=== PATIENT | male | born 1960 | race Caucasian/White ===

== ENCOUNTER → 2018-03-31 | Day surgery (SDC) | payer OTHER ==
[2018-03-28 11:18] LABS: Basophils # (auto) 0 uL; Basophils % (auto) 1.1 % (0.0-2.0); Eosinophils # (auto) 0.2 uL; Eosinophils % (auto) 4.2 % (0.0-7.0); Hematocrit 47.4 % (41.0-53.0); Hemoglobin 16.2 g/dL (13.5-17.5); Lymphocytes # (auto) 1.2 uL; Lymphocytes % (auto) 27.5 % (10.0-50.0); Mean Corpuscular Hemoglobin 31.2 pg (28.0-32.0); Mean Corpuscular Hgb Conc. 34.2 g/dL (32.0-36.0); Mean Corpuscular Volume 91.3 fL (80.0-100.0); Monocytes # (auto) 0.2 uL; Monocytes % (auto) 5.8 % (0.0-12.0); Neutrophils # (auto) 2.6 uL; Neutrophils % (auto) 61.4 % (37.0-80.0); Nucleated Red Blood Cells % 0.1 %; Platelet Count (auto) 133 10^3/uL (140-450); Red Blood Cells 5.19 10^6/uL (4.5-5.90); Red Cell Distribution Width 12.6 % (11.8-14.3); White Blood Cell 4.2 10^3/uL (4.4-10.8)
[2018-03-28 11:22] LABS: Urine Bacteria NONE SEEN /hpf (None Seen); Urine Blood Negative /uL (Negative); Urine Specific Gravity 1.013 (1.001-1.035); Urine WBC <1 /hpf (0 - 3)
[2018-03-28 11:35] LABS: INR 0.94 (0.9-1.15); Partial Thromboplastin Time 28.4 sec (23.78-33.04); Prothrombin Time 10.1 sec (9.27-12.13)
[2018-03-28 11:37] LABS: BUN/Creatinine Ratio 12.2; Calcium 8.7 mg/dL (8.5-10.1)
[2018-03-28 11:40] LABS: Bilirubin, Total 0.7 mg/dL (0.2-1.0); Total Protein 7.5 g/dL (6.4-8.2)
[~2018-03-31] VITALS: Ht 180.3 cm; Wt 81.6 kg
[~2018-03-31] MED LIST: BUPIVACAINE W/ EPINEPH 0.5% MPF 30ML VIAL IJ ONE; LEVO137T3 PO; LIDOCAINE W/ EPINEPHRINE 1 % INJ 30ML ONE; MIDAZOLAM HCL 1MG/1ML-2 ML VIAL ONE; MORPHINE SULF(PF) 0.5MG/ML 10ML VIAL ONE; ONDANSETRON HCL 4 MG/2 ML VIAL IV ONE; VANCOMYCIN HCL 1000 MG VL ONE; ceFAZolin 1GM/50ML 100 ML IV ONE; ePHEDrine SULFATE 50 MG/ML AMP IV PRN; fentaNYL CITRATE 100 MCG/2 ML VL IV ONE; fentaNYL CITRATE 100 MCG/2 ML VL ONE; hydrALAZINE HCL 20 MG/ML VL IV PRN
[2018-03-31 08:52] VITALS: BP 128/59
== END | disposition home or self-care (01) ==
LOC: PAIN 06:13
PROVIDERS: ATTEND Anesthesiology Pain Medicine
DX: M51.16 Intervertebral disc disorders with radiculopathy, lumbar region (principal); M54.40 Lumbago with sciatica, unspecified side; Z45.49 Encounter for adjustment and management of other implanted nervous system device; E03.9 Hypothyroidism, unspecified; G47.30 Sleep apnea, unspecified; K21.9 Gastro-esophageal reflux disease without esophagitis; Z79.2 Long term (current) use of antibiotics
CPT/HCPCS: 36415; 62362; 62370; 80053; 81001; 85025; 85610; 85730; C1772; J0690; J2001; J2250; J2270; J3010; J3370; J2405

== ENCOUNTER 2024-10-19 06:12 | Day surgery (SDC) | payer OTHER ==
[~2024-10-19] VITALS: Ht 180.3 cm; Wt 81.6 kg
[~2024-10-19 06:12] MED LIST changes: +ATOR10TA PO; -BUPIVACAINE W/ EPINEPH 0.5% MPF 30ML VIAL IJ ONE; +BUPR150T8 PO; +IBU600T PO; +LATA0.008 EACHEYE; -LIDOCAINE W/ EPINEPHRINE 1 % INJ 30ML ONE; -MIDAZOLAM HCL 1MG/1ML-2 ML VIAL ONE; -MORPHINE SULF(PF) 0.5MG/ML 10ML VIAL ONE; -ONDANSETRON HCL 4 MG/2 ML VIAL IV ONE; +PANT40TA2 PO; +PERCOT PO; -VANCOMYCIN HCL 1000 MG VL ONE; -ceFAZolin 1GM/50ML 100 ML IV ONE; -ePHEDrine SULFATE 50 MG/ML AMP IV PRN; -fentaNYL CITRATE 100 MCG/2 ML VL IV ONE; -fentaNYL CITRATE 100 MCG/2 ML VL ONE; -hydrALAZINE HCL 20 MG/ML VL IV PRN
[2024-10-19] MEDS ORDERED: VANCOMYCIN HCL 1000 MG VL ONE (06:54)
[2024-10-19] MEDS ORDERED: PROPOFOL 10 MG/ML 20 ML IV ONE (06:54)
[2024-10-19] MEDS ORDERED: fentaNYL CITRATE 5 ML ONE (06:54)
[2024-10-19] MEDS ORDERED: ceFAZolin 2 GM/D5W50ml 50 ML IV ONE (07:08)
[2024-10-19] MEDS ORDERED: MIDAZOLAM HCL 2MG/2ML 2ml VIAL (1mg/ml) ONE (07:30)
[2024-10-19] MEDS: MORPHINE SULF PF 5 MG/10 ML VIAL ONE (07:49)
[2024-10-19] MEDS: LIDOCAINE 1%-Mpf/Epinephrine 1:200,000 30ml VIAL ONE (07:49)
[2024-10-19] MEDS: BUPIVACAINE W/ EPINEPH 0.5% MPF 30ML VIAL IJ ONE (07:49)
[2024-10-19 08:28] VITALS: PULSE 80; RESP 12; TEMP 97.8; O2SAT 95
[2024-10-19] MEDS ORDERED: HYDROmorphone HCL 2 MG/ML VL/or syr IV PRN (08:45)
[2024-10-19] MEDS ORDERED: ONDANSETRON HCL 4 MG/2 ML VIAL IV PRN (08:45)
[2024-10-19] MEDS ORDERED: ACETAMINOPHEN IV 1000 MG/100ML (10MG/ML) IV PRN (08:45)
[2024-10-19 08:58] VITALS: BP 133/80; PULSE 61; RESP 13; O2SAT 98
== END 2024-10-19 09:10 | disposition home or self-care (01) ==
LOC: SUR 06:12
PROVIDERS: ATTEND Anesthesiology Pain Medicine
DX: M51.16 Intervertebral disc disorders with radiculopathy, lumbar region (principal); E78.5 Hyperlipidemia, unspecified; E03.9 Hypothyroidism, unspecified; M47.26 Other spondylosis with radiculopathy, lumbar region; M50.10 Cervical disc disorder with radiculopathy, unspecified cervical region; M70.61 Trochanteric bursitis, right hip; M70.62 Trochanteric bursitis, left hip; M96.1 Postlaminectomy syndrome, not elsewhere classified; G89.4 Chronic pain syndrome; M77.11 Lateral epicondylitis, right elbow; M77.12 Lateral epicondylitis, left elbow
CPT/HCPCS: 62362; 62370; C1772; J0690; J2004; J2250; J2270; J2704; J3010; J3373